=== PATIENT | male | born 1965 | race Caucasian/White ===

== ENCOUNTER 2024-10-03 17:47 | Inpatient (IN) | payer OTHER ==
[~2024-10-03] VITALS: Ht 170.2 cm; Wt 86.0 kg
[2024-10-03 19:01] LABS: BASOPHILS % (AUTO) 0.6 % (0.0-2.0); EOSINOPHILS % (AUTO) 0.9 % (1.0-6.0); HEMOGLOBIN 12.8 g/dL (13.5-17.5); LYMPHOCYTES # (AUTO) 3.2 K/uL (1.0-4.8); MEAN CORPUSCULAR HEMOGLOBIN 30.9 pg (26.0-34.0); MEAN CORPUSCULAR HGB CONC 33.7 G/dL (31.0-37.0); MEAN CORPUSCULAR VOLUME 92 fL (80-100); MONOCYTES # (AUTO) 0.7 K/uL (0.1-1.0); MONOCYTES % (AUTO) 5.9 % (2.0-9.0); NEUTROPHILS % (AUTO) 63.6 % (40.0-70.0); PLATELET COUNT (AUTO) 360 K/uL (150-450); RED BLOOD CELL COUNT(AUTO) 4.14 MIL/uL (4.50-5.90)
[2024-10-03 19:18] LABS: ANION GAP 10 mmol/L (8-16); CALCIUM, TOTAL 9.7 mg/dL (8.8-10.5); CARBON DIOXIDE 24 mmol/L (22-29); CHLORIDE 106 mmol/L (98-107); CREATININE 1.16 mg/dL (0.60-1.30); GLOMERULAR FILTR. RATE CALC > 60 mL/min (>60); GLUCOSE,RANDOM 101 mg/dL (70-110); SODIUM SERUM 140 mmol/L (136-145); UREA NITROGEN, BLOOD 14 mg/dL (7-18)
[2024-10-03 19:29] LABS: ALBUMIN 4.3 g/dL (3.4-5.0); BILIRUBIN,DIRECT 0.1 mg/dL (0.00-0.20); BILIRUBIN,TOTAL 0.5 mg/dL (0.1-1.0); TOTAL PROTEIN, SERUM 7.6 g/dL (6.4-8.2)
[2024-10-03 19:48] LABS: C-REACTIVE PROTEIN QUANT < 0.05 mg/dL (0.00-0.30)
[2024-10-03] MEDS: MORPHINE SULFATE 2 MG/ML SYRINGE IVP ONE (19:50)
[2024-10-03 20:04] LABS: APPEARANCE,URINE CLEAR (CLEAR); BILIRUBIN,URINE NEGATIVE (NEGATIVE); COLOR,URINE COLORLESS (YELLOW); GLUCOSE, URINE (UA) NEGATIVE (NEGATIVE); KETONES,URINE NEGATIVE (NEGATIVE); LEUKOCYTE ESTERASE ,URINE NEGATIVE (NEGATIVE); NITRATE,URINE NEGATIVE (NEGATIVE); OCCULT BLOOD,URINE NEGATIVE (NEGATIVE); PROTEIN,URINE NEGATIVE (NEGATIVE); SPECIFIC GRAVITIY, URINE 1.005 (1.003-1.030); UROBILINOGEN,URINE <=1.0 mg/dL (<=1.0)
[2024-10-03] MEDS ORDERED: GADOTERATE MEGLUMINE 10 MMOL/20 ML VIAL IVP ONE (20:38)
[2024-10-03] MEDS ORDERED: ZOLPIDEM TARTRATE 5 MG TABLET PO PRN (21:30)
[2024-10-03] MEDS ORDERED: ONDANSETRON HCL 4 MG/2 ML VIAL IVP PRN (21:30)
[2024-10-03] MEDS ORDERED: BISACODYL 10 MG RECTAL RECTAL SUPPOSITORY PR PRN (21:30)
[2024-10-04] MEDS: HEPARIN SODIUM,PORCINE 5,000 UNITS/ML VIAL SQ SCH (00:03)
[2024-10-04] MEDS: AmLODIPine BESYLATE 5 MG TABLET PO SCH (00:03)
[2024-10-04 00:54] VITALS: BP 122/83; PULSE 75; RESP 18; TEMP 98.6; O2SAT 97
[2024-10-04 04:12] VITALS: BP 110/90; PULSE 78; RESP 18; TEMP 98.1; O2SAT 99
[2024-10-04] MEDS: HYDROCODONE/ACETAMINOPHEN 5-325 MG TABLET PO PRN (06:12)
[2024-10-04 06:46] LABS: BASOPHILS % (AUTO) 1.2 % (0.0-2.0); EOSINOPHILS % (AUTO) 4.5 % (1.0-6.0); HEMATOCRIT 38.2 % (41-53); HEMOGLOBIN 13.1 g/dL (13.5-17.5); LYMPHOCYTES # (AUTO) 2.5 K/uL (1.0-4.8); LYMPHOCYTES % (AUTO) 33.9 % (22.0-44.0); MEAN CORPUSCULAR HEMOGLOBIN 31.4 pg (26.0-34.0); MEAN CORPUSCULAR HGB CONC 34.3 G/dL (31.0-37.0); MEAN CORPUSCULAR VOLUME 92 fL (80-100); MONOCYTES # (AUTO) 0.7 K/uL (0.1-1.0); MONOCYTES % (AUTO) 9.1 % (2.0-9.0); NEUTROPHILS # (AUTO) 3.7 K/uL (1.8-7.7); NEUTROPHILS % (AUTO) 51.3 % (40.0-70.0); PLATELET COUNT (AUTO) 367 K/uL (150-450); RED BLOOD CELL COUNT(AUTO) 4.17 MIL/uL (4.50-5.90); RED CELL DISTRIBUTION WIDTH 13.1 % (11.5-14.5); WHITE BLOOD COUNT (AUTO) 7.2 K/uL (4.5-11.0)
[2024-10-04 06:59] LABS: CALCIUM, TOTAL 9.1 mg/dL (8.8-10.5); CREATININE 1.27 mg/dL (0.60-1.30)
[2024-10-04] MEDS: PANTOPRAZOLE SODIUM 40 MG DR TABLET PO SCH (08:23)
[2024-10-04] MEDS: DOCUSATE SODIUM 100 MG CAPSULE PO SCH (08:23)
[2024-10-04 08:27] VITALS: BP 110/76; PULSE 89; RESP 18; TEMP 98.1; O2SAT 96
[2024-10-04] MEDS: MORPHINE SULFATE 2 MG/ML SYRINGE IVP PRN (09:43)
[2024-10-04 19:33] VITALS: BP 133/94; PULSE 102; RESP 18; TEMP 97.6; O2SAT 97
[2024-10-05 05:39] VITALS: BP 123/75; PULSE 81; RESP 18; TEMP 97.5; O2SAT 96
[2024-10-05 08:27] LABS: EOSINOPHILS % (AUTO) 6.2 % (1.0-6.0); HEMATOCRIT 36.5 % (41-53); HEMOGLOBIN 12.3 g/dL (13.5-17.5); LYMPHOCYTES # (AUTO) 3.4 K/uL (1.0-4.8); LYMPHOCYTES % (AUTO) 45.2 % (22.0-44.0); MEAN CORPUSCULAR HEMOGLOBIN 31.1 pg (26.0-34.0); MEAN CORPUSCULAR HGB CONC 33.6 G/dL (31.0-37.0); MEAN CORPUSCULAR VOLUME 93 fL (80-100); MONOCYTES # (AUTO) 0.7 K/uL (0.1-1.0); MONOCYTES % (AUTO) 9.2 % (2.0-9.0); NEUTROPHILS # (AUTO) 2.9 K/uL (1.8-7.7); NEUTROPHILS % (AUTO) 38.4 % (40.0-70.0); PLATELET COUNT (AUTO) 323 K/uL (150-450); RED BLOOD CELL COUNT(AUTO) 3.94 MIL/uL (4.50-5.90); RED CELL DISTRIBUTION WIDTH 13.4 % (11.5-14.5); WHITE BLOOD COUNT (AUTO) 7.4 K/uL (4.5-11.0)
[2024-10-05 09:10] VITALS: BP 128/88; PULSE 76; RESP 18; TEMP 98.2; O2SAT 97
[2024-10-05 19:20] VITALS: BP 128/79; PULSE 94; RESP 18; TEMP 97.2; O2SAT 98
[2024-10-05] MEDS: ACETAMINOPHEN 325 MG TABLET PO PRN (21:03)
[2024-10-06 05:09] VITALS: BP 124/87; PULSE 88; RESP 18; TEMP 97.6; O2SAT 98
[2024-10-06 07:26] LABS: HEMATOCRIT 36.2 % (41-53); HEMOGLOBIN 12.4 g/dL (13.5-17.5); MEAN CORPUSCULAR HEMOGLOBIN 31.3 pg (26.0-34.0); MEAN CORPUSCULAR HGB CONC 34.1 G/dL (31.0-37.0); MEAN CORPUSCULAR VOLUME 92 fL (80-100); PLATELET COUNT (AUTO) 320 K/uL (150-450); RED BLOOD CELL COUNT(AUTO) 3.95 MIL/uL (4.50-5.90); WHITE BLOOD COUNT (AUTO) 7.7 K/uL (4.5-11.0)
[2024-10-06 07:27] LABS: EOSINOPHILS % (AUTO) 7.3 % (1.0-6.0); LYMPHOCYTES # (AUTO) 3.6 K/uL (1.0-4.8); LYMPHOCYTES % (AUTO) 47.1 % (22.0-44.0); MONOCYTES # (AUTO) 0.5 K/uL (0.1-1.0); MONOCYTES % (AUTO) 6.8 % (2.0-9.0); NEUTROPHILS # (AUTO) 2.9 K/uL (1.8-7.7); NEUTROPHILS % (AUTO) 37.8 % (40.0-70.0); RED CELL DISTRIBUTION WIDTH 13.1 % (11.5-14.5)
[2024-10-06 08:00] VITALS: BP 153/86; PULSE 87; RESP 14; TEMP 97.5; O2SAT 100
[2024-10-06] MEDS: MAGNESIUM HYDROXIDE SUSPENSION 30 ML UDCUP PO PRN (08:31)
[2024-10-06 19:49] VITALS: BP 129/82; PULSE 89; RESP 18; TEMP 98.6; O2SAT 96
[2024-10-07 04:14] VITALS: BP 132/84; PULSE 85; RESP 18; TEMP 97.9; O2SAT 97
[2024-10-07 07:20] VITALS: BP 131/89; PULSE 92; RESP 20; TEMP 97.9; O2SAT 97
[2024-10-07] MEDS: MethylPREDNISolone 4 MG TABLET PO SCH ×2 (13:00→14:56)
[2024-10-07] MEDS: GABAPENTIN 300 MG CAPSULE PO SCH (13:07)
[2024-10-07 15:30] VITALS: BP 135/93; PULSE 93; RESP 17; TEMP 98.1; O2SAT 98
[2024-10-07 19:51] VITALS: BP 129/90; PULSE 94; RESP 18; TEMP 98.2; O2SAT 94
[2024-10-08] MEDS: MethylPREDNISolone 4 MG TABLET PO SCH ×2 (00:10→06:29)
[2024-10-08 04:01] VITALS: BP 120/86; PULSE 84; RESP 18; TEMP 98.1; O2SAT 98
[2024-10-08 08:05] VITALS: BP 133/82; PULSE 76; RESP 20; TEMP 97.9; O2SAT 98
[2024-10-08 20:25] VITALS: BP 125/93; PULSE 98; RESP 20; TEMP 98.1; O2SAT 95
[2024-10-09 04:56] VITALS: BP 131/92; PULSE 88; RESP 18; TEMP 98.1; O2SAT 97
[2024-10-09 08:24] VITALS: BP 125/86; PULSE 78; RESP 20; TEMP 97.9; O2SAT 100
[2024-10-09] MEDS ORDERED: AMLO-257 PO (13:46)
[2024-10-09] MEDS ORDERED: DOCU-385 PO (13:47)
[2024-10-09] MEDS ORDERED: GABA-1181 PO (13:48)
[2024-10-09] MEDS ORDERED: METH4TAB95 PO ×4 (13:51→14:05)
[2024-10-09] MEDS ORDERED: PANT-31 PO (14:09)
[2024-10-09] MEDS ORDERED: ACET650S24 PR (14:10)
[2024-10-09] MEDS ORDERED: ACET-2247 PO (14:11)
[2024-10-09] MEDS ORDERED: HYDR-4062 PO (14:12)
[2024-10-09] MEDS: MethylPREDNISolone 4 MG TABLET PO SCH (20:55)
[2024-10-09 21:00] VITALS: BP 152/87; PULSE 101; RESP 20; TEMP 98.2; O2SAT 98
[2024-10-10 00:40] VITALS: BP 133/92; PULSE 92; RESP 18; TEMP 98.1; O2SAT 99
[2024-10-10 05:00] VITALS: BP 122/87; PULSE 77; RESP 18; TEMP 98.4; O2SAT 98
[2024-10-10 08:03] VITALS: BP 137/91; PULSE 79; RESP 18; TEMP 98.1; O2SAT 99
[2024-10-10] MEDS: MethylPREDNISolone 4 MG TABLET PO SCH (12:57)
== END 2024-10-10 14:30 | DRG 552 ==
LOC: EMS 17:47 → EDH 22:22 → 6N 10-04 00:40
PROVIDERS: ADMIT Internal Medicine; ATTEND Internal Medicine
DX: M47.896 Other spondylosis, lumbar region (principal); M47.817 Spondylosis without myelopathy or radiculopathy, lumbosacral region; G89.29 Other chronic pain; D64.9 Anemia, unspecified; I10 Essential (primary) hypertension; Z79.899 Other long term (current) drug therapy
CPT/HCPCS: 72158; 80048; 80076; 81003; 85025; 85651; 86140; 87040; 93306; 99285; G0378; J1644; J2270; J7509